=== PATIENT | female | born 1955 | race Two or more races ===

== ENCOUNTER 2019-05-11 06:36 | Outpatient (CLI) | payer OTHER | END 2019-05-11 10:55 | disposition home or self-care (01) | LOC: LAB 06:36 | DX: D50.8 Other iron deficiency anemias (principal); I10 Essential (primary) hypertension; C54.1 Malignant neoplasm of endometrium; D51.3 Other dietary vitamin B12 deficiency anemia; E78.2 Mixed hyperlipidemia; E03.8 Other specified hypothyroidism; D51.8 Other vitamin B12 deficiency anemias ==

== ENCOUNTER 2019-07-06 11:25 | Outpatient (CLI) | payer OTHER | END 2019-07-06 11:41 | disposition home or self-care (01) | LOC: LAB 11:25 | DX: D51.3 Other dietary vitamin B12 deficiency anemia (principal); I10 Essential (primary) hypertension; E78.2 Mixed hyperlipidemia; E03.8 Other specified hypothyroidism; D72.818 Other decreased white blood cell count ==